=== PATIENT | male | born 1955 | race Caucasian/White ===

== ENCOUNTER 2019-07-05 21:31 | Inpatient (IN) ==
--- NOTE | 2019-07-05 21:52 | Diag Imaging Result Doc PS360 ---
CT HEAD W/O CONTRAST - 07/05/2019 INDICATION: stroke COMPARISON: None FINDINGS: There is abnormal appearance of the left cerebellar hemisphere. This may represent an old stroke. Otherwise, the ventricles and sulci are normal in size and contour. No intracranial mass or hemorrhage. There are mucosal retention cysts in the left maxillary sinus. Otherwise the sinuses are clear. IMPRESSION: Abnormal appearance of the left cerebellar hemisphere, most likely an old stroke. Recommend a follow-up brain MRI. This exam was performed using automated exposure control, adjustment of mA or kV according to patient size, and/or use of iterative reconstruction technique Electronically signed by Justin Carter 07/05/2019 9:50 PM
[2019-07-05] MEDS ORDERED: NS 1,000 ML IV PRN (22:02)
[2019-07-05 22:14] LABS: URINE SOURCE CLEAN CATCH
[2019-07-05 22:27] LABS: BASO# 0.07 X1000 (0.0-0.2); BASO% 0.6 % (0.0-0.8); EOS# 0.16 X1000 (0.0-0.7); EOS% 1.4 % (0.0-10.0); HEMATOCRIT 47.2 % (42.0-52.0); HEMOGLOBIN 16.7 g/dL (14.0-18.0); IMM GRAN# 0.03 X1000 (0.0-0.04); IMM GRAN% 0.3 % (0.0-0.5); LYMPH# 3.06 X1000 (1.2-3.4); LYMPH% 26.4 % (20.5-51.1); MCH 33.3 PG (27-31); MCHC 35.4 g/dL (33-37); MCV 94.2 FL (81-99); MONO# 0.95 X1000 (0.11-0.59); MONO% 8.2 % (1.7-9.3); MPV 9.8 FL (7.4-10.4); NEUT# 7.34 X1000 (1.4-6.5); NEUT% 63.1 % (42.2-75.2); PLT 195 X1000 (130-400); RBC 5.01 XMIL (4.7-6.1); WBC 11.61 X1000 (4.8-10.8)
[2019-07-05 22:29] LABS: INR 1.02; PROTIME 13.5 Seconds (11.0-16.0); PTT 25.6 Seconds (22.3-41.8)
[2019-07-05 22:36] LABS: AGAP 17; ALB/GLOB RATIO 2.1; ALBUMIN 4.6 g/dL (3.5-5.0); ALKALINE PHOSPHATASE 87 U/L (32-122); BUN 11 mg/dL (8-22); CALCIUM 9.7 mg/dL (8.8-10.2); CHLORIDE 100 mmol/L (98-107); COSMO 275; CREATININE 0.8 mg/dL (0.7-1.2); ESTIMATED GFR > 60; GLUCOSE 159 mg/dL (70-104); GOT 23 U/L (10-34); GPT 31 U/L (10-44); POTASSIUM 3.9 mmol/L (3.5-5.1); SODIUM 136 mmol/L (136-145); TCO2 19 mmol/L (25-35); TOTAL BILIRUBIN 0.34 mg/dL (0.20-1.00); TOTAL PROTEIN 6.8 g/dL (6.3-8.3)
[2019-07-05 22:42] LABS: BILIRUBIN URINE NEGATIVE (NEGATIVE); BLOOD URINE SMALL (NEGATIVE); COLOR YELLOW; GLUCOSE URINE NEGATIVE (NEGATIVE); KETONE URINE NEGATIVE (NEGATIVE); LEUKOCYTES URINE NEGATIVE (NEGATIVE); NITRITE URINE NEGATIVE (NEGATIVE); PROTEIN URINE NEGATIVE (NEGATIVE); SP GRAVITY URINE 1.008; TURBIDITY URINE CLEAR (CLEAR); UROBILINOGEN URINE NORMAL (NORMAL)
[2019-07-05 22:43] LABS: UR EPITHELIAL CELLS <10 /HPF (<10); URINE BACTERIA NEGATIVE /HPF; URINE RBC <10 /HPF (<10); URINE WBC <10 /HPF (<10)
[2019-07-05 23:02] LABS: UR AMPHETAMINES QUAL NONE DETECTED (NONE DETECT); UR BARBITUATES QUAL NONE DETECTED (NONE DETECT); UR BENZODIAZEPIN QUAL NONE DETECTED (NONE DETECT); UR CANNABINOIDS QUAL NONE DETECTED (NONE DETECT); UR COCAINE QUAL NONE DETECTED (NONE DETECT); UR METHADONE QUAL NONE DETECTED (NONE DETECT); UR OPIATES QUAL NONE DETECTED (NONE DETECT); UR OXYCODONE QUAL NONE DETECTED (NONE DETECT); UR PCP QUAL NONE DETECTED (NONE DETECT)
[2019-07-06] MEDS ORDERED: ASPIRIN PO ONE (01:01)
--- NOTE | 2019-07-06 01:35 | PROVIDER DOCUMENTATION ---
This chart was entered by Lanny Jordan Scribe, acting as scribe for Chris Valerio MD. HPI-Neurological Disorder - General Chief Complaint: Stroke-Like Symptoms Stated Complaint: stroke like symptoms Time Seen by Provider: 07/05/19 21:42 Source: patient Allergies/Adverse Reactions: Patient Allergies Allergy/AdvReac Type Severity Reaction Status Date / Time codeine AdvReac Intermediate VOMITING Verified 07/05/19 22:39 Home Medications: Home Medication List Medication Instructions Recorded Confirmed Last Taken Type NK [No Home Medications] 07/05/19 07/05/19 Unknown History - History of Present Illness-Neuro Nature of Presenting Problem: pt is a 64 yr old male presenting via EMS with complaint of slurred speech, double vision, right side weakness and difficulty ambulating, onset 1729 at home, pt admits he waited because he thought it would get better on its on, neighbor came by and noted his slurred speech and called EMS for transport. EMS reports initially pt has significant dropping to right mouth and unable to move right arm or leg , EMS reports pt has improved since they 1st encountered pt. per EMS pt was put into TCC and referred here for CT due to time of onset. pt denies head or chest pain Onset/Duration: reports: this evening (1729) Timing: reports: still present Context: reports: impaired speech, facial droop Approximate time patient was last seen normal?: 17:30 Character of Altered Mental Status: reports: N/A Any recent trauma/injury?: reports: none Character of Deficits: reports: new weakness, impaired speech, decreased ability to stand, decreased ability to walk New weakness or altered sensation location:: reports: RUE, RLE, right facial Cognitive Baseline: alert, oriented x3 Gait Baseline: walks without assistance Associated Symptoms: reports: decreased ability to walk or stand, slurred speech , trouble walking. denies: headache, dizziness, confusion, loss of c onsciousness, numbness in legs/feet, tingling in legs/feet Similar Symptoms Previously?: No Recently seen or treated by another doctor?: No Review of Systems - Adult - REVIEW OF SYSTEMS - ADULT Constitutional: denies: chills, fever Eyes: reports: double vision. denies: blurred vision Ears, Nose, Mouth & Throat: reports: no symptoms reported Cardiovascular: denies: chest pain, palpitations, syncope Respiratory: denies: cough, dyspnea on exertion, shortness of breath Gastrointestinal: denies: abdominal pain, nausea Genitourinary: reports: no symptoms reported Musculoskeletal: reports: muscle weakness Integumentary: reports: no symptoms reported Neurological: reports: numbness, slurred speech. denies: dizziness/vertigo, seizure Psychiatric: reports: no symptoms reported Endocrine: reports: no symptoms reported Hematologic/Lymphatic: reports: no symptoms reported Allergic/Immunologic: reports: no symptoms reported All Other Systems: Reviewed and Negative Past History - Adult - PAST MEDICAL HISTORY-ADULT Review of Records: reports: Nursing Assessment Review, Medications Reviewed, Social history reviewed & non-contributory. Major Childhood Illnesses: reports: denies history Cardiovascular: reports: HTN, [place] Respiratory: reports: denies history Gastrointestinal: reports: denies history Obstetrical/Gynecological: reports: denies history Genitourinary: reports: denies history Musculoskeletal: reports: denies history Neurological: reports: TIA Psychiatric: reports: suicide attempt Endocrine/Immune: reports: denies history Other Conditions: reports: denies history - PRIOR SURGERIES/PROCEDURES Surgical/Procedure History: reports: cardiac stent - IMMUNIZATION STATUS Childhood Immunizations: See Nurse Assessment Flu Vaccine: See Nurse Assessment - FAMILY HISTORY Family History: reviewed, not pertinent - SOCIAL HISTORY Smoking: cigarettes Provider spent 3-5 mins advising pt. on dangers of tobacco.: Discussed manners to quit use, and f/u contacts for add'l counseling. Substance Use: alcohol Living Situation: alone Physical Exam- Neurological - Physical Exam-Neuro Initial Vital Signs Reviewed: Yes General Appearance: alert, no apparent distress Eye Exam: bilateral eye: normal inspection, PERRL HENMT: normocephalic/atraumatic, moist mucous membranes, normal ENT inspection Head Injury: no evidence of injury Neck: non-tender, full range of motion, supple, normal inspection Respiratory: chest non-tender, lungs clear, normal breath sounds Cardiovascular: normal peripheral pulses, regular rate, rhythm, no edema Abdominal Exam: normal bowel sounds, non tender, soft Lymphatic: no adenopathy Peripheral Pulses: radial (R): 2+, radial (L): 2+ Extremity: non-tender parking station attendant Exam: normal hearing, PERRL, abnormal speech. negative: facial droop, tongue deviation to R Motor/Sensory: pronator drift (R), weak motor strength RUE, weak motor strength RLE. negative: sensory deficit Neurologic: other (CN II-XII intact) Integumentary: normal color, normal turgor, warm/dry Psych/Mental Status: normal mood/affect - Glascow Coma Scale Best Eye Response: (4) open spontaneously Best Verbal Response: (5) oriented Best Motor Response: (6) obeys commands Total Glascow Score: 15 Progress - PLAN OF CARE/RESULTS Progress/Plan/Lab Results: Vital Signs - 8 hr 07/05/19 21:58 07/05/19 22:40 07/06/19 00:02 Temperature 98.2 F Pulse Rate 98 H 89 80 Respiratory Rate 20 13 23 Blood Pressure 181/120 153/97 161/103 O2 Sat by Pulse Oximetry 97 97 96 07/06/19 01:28 Temperature Pulse Rate 73 Respiratory Rate 27 H Blood Pressure 157/108 O2 Sat by Pulse Oximetry 95 Laboratory Results - last 24 hr 07/05/19 07/05/19 07/05/19 21:56 21:56 21:56 WBC 11.61 H RBC 5.01 Hgb 16.7 Hct 47.2 MCV 94.2 MCH 33.3 H MCHC 35.4 RDW Std Deviation 12.0 Plt Count 195 MPV 9.8 Immature Gran % (Auto) 0.3 Neut % (Auto) 63.1 Lymph % (Auto) 26.4 [place] % (Auto) 8.2 Eos % (Auto) 1.4 Baso % (Auto) 0.6 Immature Gran # (Auto) 0.03 Neut # (Auto) 7.34 H Lymph # (Auto) 3.06 [place] # (Auto) 0.95 H Eos # (Auto) 0.16 Baso # (Auto) 0.07 PT INR PTT (Actin FS) Sodium 136 Potassium 3.9 Chloride 100 Carbon Dioxide 19 L Anion Gap 17 BUN 11 Creatinine 0.8 Estimated GFR/1.73 m2 > 60 BUN/Creatinine Ratio 14 Glucose 159 H POC Glucose Calculated Osmolality 275 Calcium 9.7 Total Bilirubin 0.34 AST 23 ALT 31 Alkaline Phosphatase 87 Troponin T High Sens 13 Total Protein 6.8 Albumin 4.6 Globulin 2.2 Albumin/Globulin Ratio 2.1 Urine Source Urine Color Urine Turbidity Urine pH Ur Specific [place] Urine Protein Ur Glucose (Stick) Ur Ketones (Stick) Urine Blood Urine Nitrite Urine Bilirubin Urobilinogen Dipstick Urine Leukocytes Urine WBC (Auto) Urine RBC (Auto) U Epithel Cells (Auto) Urine Bacteria (Auto) Urine Opiates Screen Ur Oxycodone Screen Ur Methadone, Qual Ur Barbiturates Screen Ur Phencyclidine Scrn Ur Amphetamines Screen U Benzodiazepines Scrn Urine Cocaine Screen U Cannabinoids Screen 07/05/19 07/05/19 07/05/19 21:56 22:04 22:04 WBC RBC Hgb Hct MCV MCH MCHC RDW Std Deviation Plt Count MPV Immature Gran % (Auto) Neut % (Auto) Lymph % (Auto) [place] % (Auto) Eos % (Auto) Baso % (Auto) Immature Gran # (Auto) Neut # (Auto) Lymph # (Auto) [place] # (Auto) Eos # (Auto) Baso # (Auto) PT 13.5 INR 1.02 PTT (Actin FS) 25.6 Sodium Potassium Chloride Carbon Dioxide Anion Gap BUN Creatinine Estimated GFR/1.73 m2 BUN/Creatinine Ratio Glucose POC Glucose Calculated Osmolality Calcium Total Bilirubin AST ALT Alkaline Phosphatase Troponin T High Sens Total Protein Albumin Globulin Albumin/Globulin Ratio Urine Source CLEAN CATCH Urine Color YELLOW Urine Turbidity CLEAR Urine pH 6.0 Ur Specific [place] 1.008 Urine Protein NEGATIVE Ur Glucose (Stick) NEGATIVE Ur Ketones (Stick) NEGATIVE Urine Blood SMALL A Urine Nitrite NEGATIVE Urine Bilirubin NEGATIVE Urobilinogen Dipstick NORMAL Urine Leukocytes NEGATIVE Urine WBC (Auto) <10 Urine RBC (Auto) <10 U Epithel Cells (Auto) <10 Urine Bacteria (Auto) NEGATIVE Urine Opiates Screen NONE DETECTED Ur Oxycodone Screen NONE DETECTED Ur Methadone, Qual NONE DETECTED Ur Barbiturates Screen NONE DETECTED Ur Phencyclidine Scrn NONE DETECTED Ur Amphetamines Screen NONE DETECTED U Benzodiazepines Scrn NONE DETECTED Urine Cocaine Screen NONE DETECTED U Cannabinoids Screen NONE DETECTED 07/05/19 22:23 WBC RBC Hgb Hct MCV MCH MCHC RDW Std Deviation Plt Count MPV Immature Gran % (Auto) Neut % (Auto) Lymph % (Auto) [place] % (Auto) Eos % (Auto) Baso % (Auto) Immature Gran # (Auto) Neut # (Auto) Lymph # (Auto) [place] # (Auto) Eos # (Auto) Baso # (Auto) PT INR PTT (Actin FS) Sodium Potassium Chloride Carbon Dioxide Anion Gap BUN Creatinine Estimated GFR/1.73 m2 BUN/Creatinine Ratio Glucose POC Glucose 127 H Calculated Osmolality Calcium Total Bilirubin AST ALT Alkaline Phosphatase Troponin T High Sens Total Protein Albumin Globulin Albumin/Globulin Ratio Urine Source Urine Color Urine Turbidity Urine pH Ur Specific [place] Urine Protein Ur Glucose (Stick) Ur Ketones (Stick) Urine Blood Urine Nitrite Urine Bilirubin Urobilinogen Dipstick Urine Leukocytes Urine WBC (Auto) Urine RBC (Auto) U Epithel Cells (Auto) Urine Bacteria (Auto) Urine Opiates Screen Ur Oxycodone Screen Ur Methadone, Qual Ur Barbiturates Screen Ur Phencyclidine Scrn Ur Amphetamines Screen U Benzodiazepines Scrn Urine Cocaine Screen U Cannabinoids Screen Orders Category Date Time Status Cardiac Monitoring DIRECTED Care 07/05/19 22:02 Active Finger Stick Blood Sugar (ED) DIRECTED Care 07/05/19 22:02 Active Misc. NRSG Communication Order DIRECTED Care 07/05/19 22:02 Active Saline Loc NOW Care 07/05/19 22:02 Active CHEST-PORTABLE [RAD] Stat Exams 07/05/19 22:[address] HEAD W/O CONTRAST [CT] Stat Exams 07/05/19 21:32 Completed CBC WITH ELECTRONIC DIFF [HEME] Stat Lab 07/05/19 21:56 Completed COMPREHENSIVE METABOLIC PANEL [CHEM] Stat Lab 07/05/19 21:56 Completed PROTIME WITH INR [COAG] Stat Lab 07/05/19 21:56 Completed PTT [COAG] Stat Lab 07/05/19 21:56 Completed TROPONIN T HIGH SENSITIVITY Stat Lab 07/05/19 21:56 Completed URINALYSIS W/POSS RFLX CULT [URINALYSIS] Stat Lab 07/05/19 22:04 Completed URINE DRUG SCREEN Stat Lab 07/05/19 22:04 Completed 0.9% Sodium Chloride Inj [Ns] 1,000 ml Med 07/05/19 22:02 Active IV 75 mls/hr Aspirin Med 07/06/19 01:01 Discontinued 81 mg PO NOW ONE EKG [EKG] Stat Ther 07/05/19 22:02 Ordered Result Diagrams: 07/05/19 21:56 07/05/19 21:56 - REASSESSMENT Reassessment #1 Time Reassessed: 00:25 Status: other (continued mild pronator drift, continued weakness to right arm, 2/3 strength right leg, continued slight slurred speach) - EKG 1 Time of EKG reading by physician:: 22:18 EKG Read and Signed by:: Chris Valerio EKG Interpretation (*Must complete 3 of following elements*): Abnormal (septal infarct age undetermined) Rate: 83 Rhythm: nsr Howe: normal QRS: normal MT Interval: normal - CT/MRI 1 CT Study: Head Impression: Abnormal (Department of Imaging Patient: LAUREL FERRERA Date: 07/05/19#: [id number] : 1955DM Status: PRE ERAcct#: [id number] Age/Sex: 64/MRoom/Bed: Loc: ED Ordering Physician: Chris Valerio MD Family Physician: Reason for Procedure: stroke ___ Signed CT HEAD W/O CONTRAST - 07/05/2019 INDICATION: stroke COMPARISON: None FINDINGS: There is abnormal appearance of the left cerebellar hemisphere. This may represent an old stroke. Otherwise, the ventricles and sulci are normal in size and contour. No intracranial mass or hemorrhage. There are mucosal retention cysts in the left maxillary sinus. Otherwise the sinuses are clear. IMPRESSION: Abnormal appearance of the left cerebellar hemisphere, most likely an old stroke. Recommend a follow-up brain MRI. This exam was performed using automated exposure control, adjustment of mA or kV according to patient size, and/or use of iterative reconstruction technique Electronically signed by Justin Carter 07/05/2019 9:50 PM 07/05/192149 Interpreting Physician: Justin Carter MD Dictated Date/Time: 07/05/192144 cc: Chris Valerio MD;) - CONSULTS/PCP/HOSPITALIST Notification #1 *Consult/PCP/Hospitalist*: Andefurin Time Discussed: 11:50 Reason/Comments: requests I call , speak to neurologist, call him back #2 Consult: Dr Chaves Time Discussed: 00:45 Reason/Comments: discussed plan of care, ASA, MRI, admit here Consult Disposition: other (admit to this facility, no transfer at this time) #3 Consult: Andefurin Time Discussed: 01:00 Consult Disposition: Will see in ED, Admit Departure - Departure Date of Disposition Decision: 07/05/19 Time of Disposition Decision: 22:00 DIAGNOSIS: Tobacco abuse CVA (cerebral vascular accident) Qualifiers: CVA mechanism: unspecified Qualified Code(s): I63.9 - Cerebral infarction, unspecified Disposition: ADMITTED INPATIENT 09 Certified Medical Emergency: Emergent Condition: Good Referrals and Follow-Ups: None,PCP [Primary Care Provider] - - Critical Care Note This patient required my direct & personal management of CC.: No Attestation - Physician/ NOEL Attestation Patient care was provided by Advanced Practice Provider:: No The physician spent face to face time with patient:: Yes Advanced Practice Provider documentation review:: Supervising physician onsite and consulted in the evaluation and care of this patient. The physician did have a face to face encounter with the patient. - NIH Stroke Scale NIH Type: Initial Evaluation Level of Consciousness: 0-Alert LOC Questions (ask month and age): 0-Answers Both Correctly LOC Commands (ask to open & close eyes;make a fist, let go): 0-Obeys Both Correctly Best Gaze (horizontal eye movement): 0-Normal Visual (use finger movement, counting or visual threat): 0-No Visual Loss Facial Palsy (show teeth or raise eyebrows & close eyes tght: 0-Symmetrical Movement Motor Function-left arm: 0-Normal Motor Function-right arm: 1-Drift Motor Function-left le-Normal Motor Function-right le-Drift Limb Ataxia(roglhb-[id number], or heel to reid): 0-No Ataxia Sensory(pin prick to face,arms,trunk,legs-compare side/side): 0-No Ataxia Dysarthria(Pt read words or say words Ex.Mama,Tip-Top,Thanks: 1-Mild-Mod Slurring Words Extinction and Inattention: 0-Normal Stroke tPA Guidelines - Inclusion Criteria for IV tPA 18 years old or older: Yes Ischemic stroke with measurable deficit: Yes Onset <3 hours ago *OR* 3-4.5 hours ago: No - Exclusion Criteria for IV tPA Seizure at stroke onset: No - Additional Exclusion Criteria for IV tPA Patient older than 80: No This chart was documented by the indicated scribe, (Lanny Jordan, Megan) and a ccurately reflects the services I performed and decisions made by me, Chris Valerio MD, as attested by the provider's signature.
[2019-07-06] MEDS ORDERED: HUMULIN R SUBQ PRN (03:18)
[2019-07-06] MEDS ORDERED: ZOFRAN IV PRN (03:18)
[2019-07-06] MEDS ORDERED: TYLENOL PO PRN (03:18)
[2019-07-06] MEDS ORDERED: NS 1,000 ML IV SCH (03:18)
--- NOTE | 2019-07-06 04:31 | HISTORY AND PHYSICAL ---
CHIEF COMPLAINT: Right-sided weakness of 1 day duration. HISTORY OF PRESENTING COMPLAINT: The patient is a 64-year-old male who presents with right-sided weakness of 1 day duration. Patient states the last time he knew his neurologic function was normal was between 5:00pm and 5:30pm. He said he was walking when he gradually felt dizzy. He said the dizziness was more of him having blurry vision and then he had some slurred speech and then when he tried to walk further he noted that he could not walk well. He was weak more on the right side. The weakness was both in the upper and the lower extremities. He could not walk properly and his upper extremities weakness was evident as he could not use his right hand to smoke as he normally does. The patient also describes associated dysphagia as well as he tried to drink beer following this episode. He also describes tingling in his right fingers as well. These symptoms initially worsened then improved slightly. He denies any fever. Denies any shortness of breath. Denies any chest pain. Denies any palpitations. Denies any passing out. The patient came to the ER. In the ER, the patient was noted to still have some right-sided weakness. Neurology in [facility] was called and they deemed the patient was stable enough to be admitted here in [facility] to have followup workup done and ne need for any acute intervention. ALLERGIES: Codeine. HOME MEDICATIONS: Patient stopped his hypertension medication on his one months ago because he could not afford it. Not currently taking any medication PAST MEDICAL HISTORY: Gout. Hypertension , CAD s/p 1 stent SOCIAL HISTORY: The patient describes significant smoking history. He has had around like 70 pack years of smoking and still currently smokes. The patient also is a heavy drinker, drinks like 12 packs of beer per day and has been drinking for over the last at least 11 years. He quit 30 years prior to that. REVIEW OF SYSTEM: Denies any dysuria, any frequency, any hematuria. Denies any change in his bowel movements. A 10 point review of systems done was negative except as stated in the HPI. PHYSICAL EXAMINATION: VITALS: Blood pressure on presentation was 153/97, pulse was 89, respiratory rate was 13, O2 saturation of 97% on 2 L. GENERAL: He is an elderly male in no acute respiratory distress. HEENT: anicteric. not pale, dry oral mucosa noted. CARDIOVASCULAR: S1 and S2 heard. No murmurs, rubs, or gallops. RESPIRATORY: Good air entry bilaterally. No wheeze. No crepitations. No added sound. ABDOMEN: Obese, distended. No abdominal tenderness. Bowel sounds normoactive. No organomegaly appreciated. EXTREMITIES: No bilateral pedal edema noted. NEUROLOGY: Alert, oriented x3. Cranial nerves, extraocular muscles are intact. Pupils are equal and reactive to light. Tongue is central. The mouth is deviated to the left. No obvious flattening of nasolabial fold noted and facial muscles strength appears intact. He shrugs his shoulders. Power is 4/5 in both right upper and lower extremities compared to 5/5 in the left upper and lower extremities. SKIN: No significant skin changes noted. LABORATORIES: WBC was 9.6, hemoglobin 16.7, hematocrit 47.2, platelet is 195,000. INR is 1.02. Sodium 136, potassium 3.9, chloride 100, bicarbonate 19, anion gap is 17, BUN 11, creatinine 0.8, glucose is 159. LFTs are essentially normal. UA was essentially normal as well, just shows small blood, and UDS is negative. IMAGING: CT of the head shows abnormal appearance of the left cerebellar hemisphere, most likely an old stroke. Recommending follow-up brain MRI. chest x-ray: I reviewed the chest x-ray, shows no acute cardiopulmonary process. No EKG was found that was done. ASSESSMENT: This is a 64-year-old who presented with right-sided weakness, slurred speech, blurry vision, dysphagia, which initially worsened and then gradually improved but patient is not back to his baseline. CT imaging shows no acute hemorrhage intracranially. On examination, patient is still having right- sided weakness noted on physical examination. ACUTE DIAGNOSIS: 1. Acute cerebrovascular accident with right hemiparesis 2. Leukocytosis, unknown cause. PLAN: 1. Patient most likely had an acute CVA and patient would benefit from inpatient hospital admission. We will do workup for an acute CVA with 2D echo. Patient planned for an MRI of the brain without contrast in the morning. PT, OT, swallow evaluation before any meal. We will keep patient on telemetry. Neuro checks q.4 hours. to do EKG as well. Also, we will do an A1c and lipid panel as well. The patient's blood pressure is elevated. Pateint has stopped his blood pressure medication for months . We will allow elevated blood pressure for now to allow for permissive hypertension and patient may need to be discharged home on blood pressure medication, but that will be at discharge. to start aspirin and statin. We will also consult Neurology as well to evaluate the patient as well given acute CVA. The patient denies any previous history of stroke although CT of the of the head shows a possible old stroke. We will await better imaging results from the MRI of the brain that will be done. 2. Leukocytosis. No focus of infection noted. May be because the patient is dry. Patient appears dry clinically with his dry oral mucosa. We will hydrate patient with IV fluid normal saline and no indication for any antibiotics at this time as there is no focus of infection. We will re-evaluate with a CBC in the morning. DVT prophylaxis. SCDs for now. CODE STATUS: Full code. DISPOSITION: We will admit patient to the medical floor. Patient will need at least 2 days of inpatient hospital admission for adequate workup and will need to be discharged for PT, OT, and adequate risk factor management. CAROLYNE
--- NOTE | 2019-07-06 06:01 | Diag Imaging Result Doc PS360 ---
EXAM: CHEST-PORTABLE HISTORY: stroke like symptoms TECHNIQUE: Single view COMPARISON: 01/08/2015 FINDINGS: Poor inspiratory effort. The heart is not enlarged. The vessels are not distended. There are no infiltrates. No effusion identified. There are old bilateral rib fractures. Nodular areas in the lower right lung believed to be large callus formation from prior fractures. Old right clavicular fracture. IMPRESSION: Negative exam. Electronically signed by Walter Martel 07/06/2019 5:59 AM
--- NOTE | 2019-07-06 07:48 | EKG Report ---
Test Performed on : 07/05/2019 10:18:59 PM Test Reason : Stroke like symptoms Blood Pressure : / mmHG Vent. Rate : 083 BPM Atrial Rate : 083 BPM P-R Int : 180 ms QRS Dur : 088 ms QT Int : 386 ms P-R-T Axes : 046 013 053 degrees QTc Int : 453 ms Normal sinus rhythm. Septal infarct , age undetermined Abnormal ECG No previous ECGs available Unconfirmed Result
[2019-07-06 08:18] LABS: HEMATOCRIT 44.4 % (42.0-52.0); HEMOGLOBIN 15.4 g/dL (14.0-18.0); MCH 33.3 PG (27-31); MCHC 34.7 g/dL (33-37); MCV 96.1 FL (81-99); MPV 9.7 FL (7.4-10.4); RBC 4.62 XMIL (4.7-6.1); RDW 12.2 % (11.5-14.5); WBC 11.09 X1000 (4.8-10.8)
[2019-07-06 08:28] LABS: HEMOGLOBIN A1C 6.8 % (4.8-6.0); INR 1.06
[2019-07-06 08:39] LABS: AGAP 11; BUN 8 mg/dL (8-22); CALCIUM 8.6 mg/dL (8.8-10.2); CHLORIDE 105 mmol/L (98-107); COSMO 278; CREATININE 0.7 mg/dL (0.7-1.2); ESTIMATED GFR > 60; GLUCOSE 131 mg/dL (70-104); POTASSIUM 3.9 mmol/L (3.5-5.1); SODIUM 139 mmol/L (136-145); TCO2 23 mmol/L (25-35)
[2019-07-06] MEDS: ASPIRIN PO SCH ×2 (09:38→10:45)
--- NOTE | 2019-07-06 09:48 | Diag Imaging Result Doc PS360 ---
EXAM: MRA BRAIN W/O CONTRAST 07/06/2019 HISTORY: stroke TECHNIQUE: 3-D [id number] COMMENT: There is stenosis of the distal basilar artery and positioning of the right posterior cerebral artery with absence of flow seen in the peripheral portions of both posterior cerebral arteries. There is also some narrowing of the left vertebral artery. Some portion of the superior cerebellar artery on the left is present although the remainder is not visible and the right-sided vessel is not visible. The anterior and middle cerebral arteries are patent bilaterally. There is no evidence of aneurysm. 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 Electronically signed by Ruben Lazar 07/06/2019 9:45 AM
--- NOTE | 2019-07-06 09:52 | Diag Imaging Result Doc PS360 ---
EXAM: MRI BRAIN W/O CONTRAST 07/06/2019 HISTORY: Acute CVA TECHNIQUE: T1 sagittal, axial, axial T2, FLAIR, DWI, [place], and coronal gradient echo. COMMENT: There are mucus retention cysts in the left maxillary sinus. There is no evidence of intracranial mass effect. There is some periventricular white matter hyperintensity on T2 particularly inferior to the left frontal horn. There is no evidence of abnormal extra-axial fluid collections. There is T1 weighted hyperintensity in the left cerebellar hemisphere. There are patchy areas of restricted diffusion in the left cerebellar hemisphere. IMPRESSION: Multiple small lacunar infarctions in the left cerebellar hemisphere accompanied by some petechial hemorrhage. The findings were discussed with Dr. Harris at 07/06/2019 9:49 AM. Electronically signed by Ruben Lazar 07/06/2019 9:50 AM
[2019-07-06] MEDS ORDERED: SOLU-MEDROL IV ONE (11:34)
--- NOTE | 2019-07-06 12:45 | NEUROLOGY CONSULTATION ---
DATE: 07/06/2019 HISTORY OF PRESENT ILLNESS: Mr. Prado is 64 years old and it looks like he has had a stroke. History from the patient is that he felt suddenly unsteady with gait, and he noticed clumsiness in the right limbs about 16 hours ago. There was blurred vision, and at least transiently janel mostly horizontal diplopia for at least 20 to 30 minutes. Speech was slurred. He had trouble swallowing. There was never unconsciousness, altered awareness, collapse, head injury, headache. He reports some improvement today. Vision is definitely improved. He believes his speech is improved. He is still not able to swallow well. He still notices significant clumsiness in the right limbs. He reports past history of "stroke" in 2007 when he had transient dizziness and right-sided weakness. This resolved in an uncertain time frame, probably hours to days. He believes stroke was diagnosed, but he is not certain about imaging findings then. He has not had other stroke. Risk factors for stroke include reported history of ischemic heart disease and probable PR, chronic cigarette smoking, which has continued, dyslipidemia, and hypertension which he has stopped treating. He also stopped his statin drug and daily aspirin. He reports no previous diagnosis of diabetes mellitus, but A1c is 6.8% here with blood sugars in the mid 100s fasting. Other lab includes WBC 11,000. Total cholesterol was 153, LDL 111, VLDL 22, HDL 38, total triglycerides 110. Urine drug screen was all negative. Brain MRI shows restricted diffusion in a patchy distribution across the left cerebellar hemisphere. On my view, there is also area of restricted diffusion near the left cerebellar peduncle. 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 He reports that he recalls having carotid ultrasound study done after the possible stroke event in 2007, and he believes findings were unremarkable then. Echocardiogram is ordered. He has been afebrile. Heart rate was initially 90s, later stable 60s-80s. Systolic blood pressure was initially 180s, later stable 130s-160s. On exam, Mr. Prado is awake, alert, attentive. He seems appropriate. Speech is dysarthric, but can be understood. Language function is intact on bedside testing. He has full visual reyes tested by confrontational finger counting. His horizontal extraocular movements appear full to confrontation. I believe there may be slight weakness in elevation of the left eye on upgaze, but that was inconsistent. He reports inconsistently split, double and blurred vision on upgaze. Findings were too inconsistent to be definite with cover/uncover testing. Facial motility is diminished on the right in an upper motor neuron pattern. Gag is intact with midline palate. Tongue is midline. Strength is normal in the left limbs. On the right, I can overcome the deltoid, grading 4/5, wrist extensor 4+/5, iliopsoas 4/5, and anterior tibialis 4/5. He does rapid alternating movements much better with the left hand than the right. He has significant right frank-dystaxia. He did well with left cehmqp-bu-vraz and ovob-nc-yqzx. He reports symmetric pinprick appreciation over the hands and feet. Proprioception is good at the great toe MTP joint bilaterally. Reflexes are diminished at the knees and ankles symmetrically, 2+ symmetrically at the wrists. Plantar response is silent bilaterally. I did not test his gait. IMPRESSION: Mild right hemiparesis, prominent right frank-dystaxia, significant dysarthria and dysphagia. Features are consistent with acute ischemic stroke and are consistent with cerebellar and brainstem/peduncle lesion. He has risk factors for cerebrovascular ischemic problems as outlined above. In light of the vascular disease apparent on MRA and the still acute time frame, I would continue aggressive hydration, continue to hold antihypertensive medicine, continue aspirin and statin, continue aggressive management of blood sugar, continue physical therapy. Depending on his clinical course and results of workup, he may be a candidate for rehabilitation. I strongly encouraged him to quit smoking cigarettes, to take his medicines as directed, and to be aggressive with the management of his risk factors. Thanks for asking Neurology to see Mr. Prado. cc: MD CAROLYNE uW III
[2019-07-06] MEDS: DUONEB (A & A) INH SCH ×3 (15:16→23:34)
--- NOTE | 2019-07-06 15:20 | ECHO REPORT ---
ORDER DATE: 07/06/2019 PROCEDURE: 2D echocardiogram. ECHOCARDIOGRAPHIC MEASUREMENTS: 1. Interventricular septum 1.6. 2. Left ventricular posterior wall 1.7. 3. Diastolic diameter 3.3. 4. Left atrium 3.8. 5. Aorta 3.4. 6. Technically suboptimal study. Poor acoustic window. 7. Aortic valve leaflets are trileaflet. 8. Pulmonic valve not well visualized. 9. Mitral valve was normal. 10. Tricuspid valve was normal. 11. There is mild mitral regurgitation. 12. Mild tricuspid regurgitation. Peak velocity across the tricuspid valve less than 2 m/sec. 13. Peak velocity across the aortic valve less than 2 m/sec. There is no aortic stenosis or regurgitation. There is grade 1 diastolic dysfunction. 14. Normal left ventricular cavity size. Concentric left ventricular hypertrophy. Estimated ejection fraction of 55% to 60%. 15. Endocardium not well visualized in all views. 16. There is no pericardial effusion. cc: Markel Alexandre MD
[2019-07-06] MEDS: HUMULIN R SUBQ SCH ×2 (16:56→22:27)
--- NOTE | 2019-07-06 17:19 | Carotid Study ---
DATE: 07/06/2019 CAREER DEVELOPMENT SPECIALIST: Lauren. REQUESTING PHYSICIAN: Dr. Maciel. INDICATION: Acute CVA. FINDINGS: Bilateral carotid arteries were visualized along their course. There was overall normal velocities and no significant atherosclerotic changes noted, antegrade vertebrals bilaterally. IMPRESSION: Normal appearing carotid duplex bilaterally. cc: Jose M Alexander MD
--- NOTE | 2019-07-06 18:16 | Diag Imaging Result Doc PS360 ---
EXAM: CT HEAD W/O CONTRAST 07/06/2019 HISTORY: recent stroke/mental status change TECHNIQUE: This exam was performed using automated exposure control, adjustment of mA or kV according to patient size, and/or use of iterative reconstruction technique. COMMENT: There is a mucous retention cyst in the left maxillary sinus. There is no evidence of mass effect, bleed, or abnormal extra-axial fluid collection. There are multiple small lacunar type lucencies demonstrated in the left cerebellar hemisphere which have also been demonstrated on recent MRI. The calvarium is intact. Compared to the previous study of 07/05/2019 there has been no significant change in the appearance of the brain. IMPRESSION: Stable CT of the head. Electronically signed by Ruben Lazar 07/06/2019 6:14 PM
--- NOTE | 2019-07-06 18:25 | EKG Report ---
Test Performed on : 07/06/2019 6:07:13 PM Test Reason : CHEST PAIN Blood Pressure : / mmHG Vent. Rate : 088 BPM Atrial Rate : 088 BPM P-R Int : 164 ms QRS Dur : 098 ms QT Int : 392 ms P-R-T Axes : 004 001 039 degrees QTc Int : 474 ms Normal sinus rhythm. Septal infarct (cited on or before 05-JUL-2019) Abnormal ECG When compared with ECG of 05-JUL-2019 22:18, (Unconfirmed) No significant change was found Confirmed by Alfonso LAU, Shoaib Tomas ([id number]) on 07/07/2019 9:41:06 AM
[2019-07-06 20:49] LABS: CK INDEX 1.4 (0.0-2.5); CK-MB 4.42 ng/mL (0.0-5.0)
[2019-07-06] MEDS ORDERED: LIPITOR PO SCH (21:00)
[2019-07-07] MEDS: DUONEB (A & A) INH SCH ×4 (03:41→16:22)
[2019-07-07 05:44] LABS: BASO# 0.02 X1000 (0.0-0.2); BASO% 0.2 % (0.0-0.8); HEMATOCRIT 44.4 % (42.0-52.0); HEMOGLOBIN 15.4 g/dL (14.0-18.0); IMM GRAN# 0.02 X1000 (0.0-0.04); IMM GRAN% 0.2 % (0.0-0.5); LYMPH# 1.74 X1000 (1.2-3.4); MCH 33.4 PG (27-31); MCHC 34.7 g/dL (33-37); MCV 96.3 FL (81-99); MONO# 0.84 X1000 (0.11-0.59); MONO% 7.3 % (1.7-9.3); MPV 9.8 FL (7.4-10.4); NEUT# 8.96 X1000 (1.4-6.5); NEUT% 77.3 % (42.2-75.2); PLT 180 X1000 (130-400); RBC 4.61 XMIL (4.7-6.1); RDW 12.4 % (11.5-14.5); WBC 11.58 X1000 (4.8-10.8)
[2019-07-07 06:21] LABS: AGAP 14; BUN 8 mg/dL (8-22); CALCIUM 9.2 mg/dL (8.8-10.2); CHLORIDE 102 mmol/L (98-107); COSMO 279; CREATININE 0.7 mg/dL (0.7-1.2); ESTIMATED GFR > 60; GLUCOSE 194 mg/dL (70-104); POTASSIUM 4.1 mmol/L (3.5-5.1); SODIUM 138 mmol/L (136-145); TCO2 22 mmol/L (25-35)
[2019-07-07] MEDS: HUMULIN R SUBQ SCH ×2 (06:26→11:32)
[2019-07-07] MEDS ORDERED: ASPIRIN EC PO SCH (09:00)
[2019-07-07] MEDS ORDERED: PREDNISONE PO SCH (09:00)
--- NOTE | 2019-07-07 10:11 | NEUROLOGY PROGRESS NOTE ---
DATE: 07/07/2019 Mr. Prado reports noticing increased weakness in the right arm overnight. He believes his swallowing and speech are also worse. He has had some return of double vision. He has not had headache. Blood pressures have been recorded 110s-140s through the morning, 140s-170s in the second half of yesterday. He continues afebrile. Heart rate was recorded 100 once overnight, otherwise 60s-90. Noncontrast CT of the head was done late yesterday and showed no changes compared to the scan done a day earlier. His brain MRI without contrast showed acute patchy left cerebellar infarction and possible left cerebellar peduncle infarction. On exam now, Mr. Prado is awake, alert, attentive, and appropriate. Speech is dysarthric and is worse than yesterday. Palate elevates more sluggishly than yesterday but remains midline. Tongue is midline. He has good power in the left limbs. In the right arm, strength grades 1/5 at the deltoid and wrist extensor. He reports diminished pinprick appreciation over the right hand compared to the left with inconsistent responses. He reports good proprioception at the right second finger PIP joint. I did not test his gait. Visual reyes are full. On confrontational testing, vertical and horizontal extraocular movements appear full. I did not do cover/uncover testing today. IMPRESSION: Clinical picture is worrisome for progression of his stroke deficit. I will order noncontrast CT to be done again and further plans will depend on that report. We might need to consider CT with contrast or repeat MRI. The brain MRA raised question of significant vertebral basilar stenosis and we can get CT angiogram of the head and neck now. We need to maintain adequate blood pressure. Thanks for asking neurology to see Mr. Prado. cc: MD CAROLYNE Wu III
--- NOTE | 2019-07-07 11:08 | Diag Imaging Result Doc PS360 ---
CT HEAD W/O CONTRAST - 07/07/2019 INDICATION: progression of right hemiparesis COMPARISON: 07/06/2019, 07/05/2019 FINDINGS: Stable hypodense areas in the left cerebellar hemisphere. No intracranial hemorrhage. No mass effect. IMPRESSION: No change from prior. This exam was performed using automated exposure control, adjustment of mA or kV according to patient size, and/or use of iterative reconstruction technique Electronically signed by Justin Carter 07/07/2019 11:05 AM
--- NOTE | 2019-07-07 11:47 | Diag Imaging Result Doc PS360 ---
CT ANGIOGRAM HEAD/NECK - 07/07/2019 INDICATION: progression of stroke deficit TECHNIQUE: Axial CT images were obtained after administering intravenous contrast. Three-dimensional angiographic images were generated. COMPARISON: 07/06/2019 FINDINGS: The ascending aorta measures 3.7 cm. Normal aortic arch and great vessels. There is some minimal vascular disease of the carotid bulbs but otherwise the carotid artery systems are normal. The vertebral arteries are patent. The left vertebral artery is dominant. Intracranially, the right vertebral artery ends in PICA. The left vertebral artery forms the basilar artery. However, at the level of the foramen magnum, there is critical stenosis of the left vertebral artery with about 95% narrowing. See images #[id number]. The intracranial internal carotid arteries are patent. The anterior and middle cerebral arteries are patent with no aneurysm or significant stenosis. IMPRESSION: Anatomic variant, the right vertebral artery does not extend to the basilar artery, and the distal most left vertebral artery demonstrates critical stenosis. This is likely the reason for the infarctions in the left cerebellar hemisphere. This exam was performed using automated exposure control, adjustment of mA or kV according to patient size, and/or use of iterative reconstruction technique Electronically signed by Justin Carter 07/07/2019 11:44 AM
--- NOTE | 2019-07-07 12:52 | PROGRESS NOTE ---
DATE: 07/07/2019 INTERVAL HISTORY: Mr. Prado was evaluated by neurology team this morning and the neurology team had noticed a change in the neurological function and so a CT scan of head and CT angiography were ordered. I am seeing him after the CT scan. SUBJECTIVE: Mr. Prado has significant dysarthria and appears a little anxious. REVIEW OF SYSTEMS: Review of systems could not be obtained since the patient could not communicate entirely well, though he answers appropriately by yes or no, and he denies chest pain, shortness of breath, nausea, vomiting, abdominal pain. He is currently asking for a urinal. VITALS: Temperature 98.4 degrees, pulse 101, respiratory rate 19, blood pressure 160/86, saturating 97% on 2 L nasal cannula. PHYSICAL EXAMINATION: Mildly tachypneic. Oral cavity is dry. Air entry bilaterally equal. No wheeze, rhonchi, or crackles. S1, S2 normal. No murmur, rub, or gallop. Appears regular. Abdomen is soft, nontender. No lower extremity edema. Neurologic: He is alert. He could tell me his name but he has dysarthria. His tongue appears midline. He has left-sided facial droop, flattening of the right nasolabial fold. Pupils are bilaterally equal reacting to light. Extraocular movements intact bilateral side to side as well as up and down without any nystagmus. Shoulder shrug is normal left shoulder, slightly weak than the right. He was not able to move his right upper extremity on command. He has hypotonia of right upper extremity. He also has significant weakness of right lower extremity. He was not able to lift above ground level. His reflexes are 2+ bilateral knee jerks. His strength is preserved on left upper and left lower extremity. Sensation also preserved right upper and right lower extremity, as well as face. His cough appears normal to me. I did not check his gait. LABS: Suggestive of WBC 11,000, hemoglobin 15.4, platelets 180,000. BUN 8, creatinine 0.7, blood glucose 159. MICROBIOLOGY: No positive data. IMAGING: Head CT performed did not have any change from prior. Head and neck CT on July 06 had critical stenosis of the distal left vertebral artery. ASSESSMENT AND PLAN: 1. Acute cerebrovascular accident affecting left cerebellum due to distal vertebrobasilar stenosis as well as bilateral posterior cerebral artery stenosis. According to my discussion with neurological team, he did have deterioration in terms of his neurological function, though it is not detected in the form of new infarct on CT scan. I will try to keep his blood pressure more than 140 mmHg. Continue aspirin, high-dose atorvastatin. Echocardiogram had ejection fraction of 55 to 60 percent, with grade 1 diastolic dysfunction, without any obvious intracardiac mass, though endocardium could not be well-visualized. Carotid Doppler study did not have carotid artery stenosis. 2. Tobacco abuse and alcohol abuse. I counseled patient about quitting these substances. He could have underlying chronic obstructive pulmonary disease.. I will keep him on inhaled albuterol-ipratropium nebulization as needed. 3. Disposition. Continue to monitor patient inside the hospital. 4. Addendum. I had a detailed discussion about his clinical situation with the neurologist on the phone. Considering his worsening neurological status, we decided to consult neurology team at [facility]. I have already called the transfer center and talked with the transfer center person, who is going to get in touch with the neurologist and I will expect a call back on my cell phone. I have asked the radiology department to push the images over. cc: Macho Alamo MD
[2019-07-07 15:17] VITALS: BP 144/88
--- NOTE | 2019-07-07 16:01 | DISCHARGE SUMMARY ---
ADMISSION DATE: 07/06/2019 DISCHARGE DATE: 07/07/2019 DISCHARGE DISPOSITION: The patient is currently being transferred to [facility]. DISCHARGE CONDITION: Hemodynamically stable. The patient's recent blood pressure is 163/86. He has persistent dysarthria, right upper extremity, and right lower extremity weakness. He also has left-sided facial droop. He is currently being transferred to [facility] for possible neurological intervention on his distal vertebral basilar artery. DISCHARGE DIAGNOSES: 1. Acute left cerebellar cerebrovascular accident. 2. 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 3. Active tobacco abuse. 4. Active alcohol abuse about 12 beer cans a day. Latest drink was about 3 days ago without known history of alcohol withdrawal. OTHER DIAGNOSES: History of essential hypertension, noncompliant with medications. CURRENT MEDICATIONS: 1. Atorvastatin 80 mg at nighttime. 2. Acetaminophen 650 mg every 6 hours as needed. 3. Albuterol ipratropium nebulization 3 mL inhaled every 4 hours. 4. Aspirin 325 mg daily. 5. Ondansetron 4 mg IV every 4 hours as needed for nausea and vomiting. 6. Insulin human regular sliding scale. CURRENT VITALS: Temperature 98.4 degrees, pulse 101, respiratory rate 19, blood pressure 160/86. Saturating 97% on 2 L nasal cannula. PHYSICAL EXAMINATION: General: Mr. Prado is not in acute distress. HEENT: Oral cavity is moist. Respiratory: Air entry bilaterally equal. No wheeze, rhonchi or crackles. Cardiovascular: S1, S2 normal. Heart rhythm is regular. Abdomen: Soft, nontender. Extremity: No lower extremity edema. Neurologic: He is alert. He could tell me his name but he has dysarthria. His tongue appears midline. He has left-sided facial droop. He has flattening of right nasolabial fold. Pupils are bilaterally equal reacting to light. Extraocular movements are intact. Both eyes are vertically as well as horizontally without any nystagmus. Shoulder shrug is normal on the left shoulder, slightly weak on the right side. He is not able to move right upper extremity on command. He has hypotonia of right upper extremity and right lower extremity. He is able to wiggle toes on right lower extremity though he is not able to lift it against ground level. He has decreased reflexes on the right, high steps and knee jerk. Sensations are preserved all extremities as well as face. He does not have any tremor. LABORATORY DATA: At the time of admission and discharge: WBC 11.5, hemoglobin 15.4, platelets 180,000. Sodium 138, potassium 4.1, BUN 8, creatinine 0.7, blood glucose 159. INR 1.06. Lipid panel has triglycerides 110, cholesterol 153, LDL 111, HDL 38. Urine toxicology was positive. No microbiological data. IMAGING: During hospital admission: 1. Head CT on July 04 had abnormal appearance of the left cerebral had cerebellar hemisphere, most likely an old stroke. 2. Chest x-ray on July 04 did not have acute cardiopulmonary process. 3. Brain MRA on July 05 had high-grade stenosis of distal basilar artery and occlusion of the left posterior cerebral and high-grade stenosis of the right posterior cerebral artery. 4. Brain MRI on July 05 had multiple small lacunar infarct in left cerebellar hemisphere accompanied by some potential hemorrhages. 5. Carotid Doppler on July 05 did not have any significant carotid artery stenosis. 6. Echocardiogram had ejection fraction of 55 to 60 percent. Mitral valve was normal. Endocardium could not be visualized in all views. 7. Repeat head CT on 07/07/2019 had stable hypodense areas in the left cerebellar hemisphere without any intracranial hemorrhage or mass effect. 8. Head and neck CT angiography on 07/07/2019 had anatomic variant, the right vertebral artery does not extend to the basilar artery and the distal most left vertebral artery demonstrates critical stenosis. This is likely the reason for the infarctions in the left cerebellar hemisphere. 9. Electrocardiogram on presentation had normal sinus rhythm. Septal infarct, age undetermined. HOSPITAL COURSE SUMMARY: Mr. Price is a 64-year-old man who presented on 06/04/2019 with chief complaints of slurred speech, double vision, right-sided weakness and difficulty ambulating since about 5:30 p.m. on July 04. The patient initially did not come to the ER as he thought he would get better on his own. However, when the neighbor came by to see him, the patient was noticed to have slurred speech, so EMS was called. EMS reported the patient initially had significant drooping of the right mouth and was unable to move his right arm or leg and he was brought to the emergency room at [facility]. In the emergency room, neurology team at [facility] was called regarding patient's current symptoms and they had recommended admission at [facility] to have follow-up imaging and no acute intervention was deemed necessary at that point. The patient was admitted, was given aspirin high-dose atorvastatin and underwent MR imaging the next day. MR imaging of the brain had detected left cerebellar CVA. The patient was also allowed permissive hypertension. However, on 07/07/2019, the patient was noted to have worsening neurological symptoms with worsening right upper extremity weakness, worsening movement of worsening dysarthria. The patient also had slight diminished movement of soft palate as compared to before, and he had worsening double vision, so a stat head CT and CT angiography was ordered. Though, CT head did not detect new acute infarct, CT angiography revealed he had almost 95% stenosis of distal basilar artery. Considering his basilar artery occlusion, worsening neurological symptoms. Neurology team at [facility] was consulted and I spoke with Dr. Andre and he has recommended transfer to [facility] considering he may or may not need any neurological intervention, so I got in touch with the hospitalist Dr. Moss and patient will be transferred. At the time of discharge if need arises the patient will be transferred back from [facility] to [facility]. Thirty-five minutes were spent discharging this patient. I went to the bedside and updated the patient about the plan of care. I answered all of his questions. TIme spent : 40 minutes. cc: Macho Alamo MD [facility]ITAL[facility]
== END 2019-07-07 18:45 | disposition short-term general hospital (02) | DRG 65 ==
LOC: ED 21:31 → 3N 07-06 03:18 → SUATTDRO 07-06 03:18 → 2N 07-06 18:04
PROVIDERS: ATTEND Internal Medicine